=== PATIENT | female | born 1985 | race Hispanic/Latino ===

== ENCOUNTER 2017-11-19 04:12 | Emergency (ER) | payer SELFPAY | END 2017-11-19 05:31 | disposition home or self-care (01) | LOC: EDH 04:12 | DX: M25.542 Pain in joints of left hand (principal); M25.541 Pain in joints of right hand; J45.909 Unspecified asthma, uncomplicated | CPT/HCPCS: 73130 ==

== ENCOUNTER 2020-06-02 12:30 | Emergency (ER) | payer MEDICAID, OTHER | END 2020-06-02 13:33 | disposition home or self-care (01) | LOC: EDH 12:30 | DX: F14.10 Cocaine abuse, uncomplicated (principal); J45.909 Unspecified asthma, uncomplicated; Z72.0 Tobacco use ==